=== PATIENT | female | born 1980 | race Caucasian/White ===

== ENCOUNTER 2016-10-03 15:50 | Emergency (ER) | payer MEDICARE, OTHER | END 2016-10-03 19:25 | disposition home or self-care (01) | LOC: ER 15:50 | DX: I10 Essential (primary) hypertension (principal); R05 Cough; E66.9 Obesity, unspecified; Z87.891 Personal history of nicotine dependence; Z79.84 Long term (current) use of oral hypoglycemic drugs; Z88.5 Allergy status to narcotic agent | CPT/HCPCS: 96374; 96375; J1200; J1885; J2765 ==

== ENCOUNTER 2017-01-29 07:38 | Emergency (ER) | payer MEDICARE, OTHER | END 2017-01-29 08:28 | disposition home or self-care (01) | LOC: ER 07:38 | DX: J02.9 Acute pharyngitis, unspecified (principal); Z88.5 Allergy status to narcotic agent | CPT/HCPCS: 87651 ==